=== PATIENT | male | born 1970 | race African-American/Black ===

== ENCOUNTER 2017-08-18 19:12 | Emergency (ER) | payer BC, OTHER ==
[~2017-08-18] VITALS: Ht 170.2 cm; Wt 90.7 kg
--- NOTE | ~2017-08-18 | EKG ---
[place] [address] [facility] [place] [address] ELECTROCARDIOGRAM REPORT Name: ROVERTO HALEYN Sina Room #: [facility]ENTERJy[facility] [id number] Admission: 08/18/17 Attend Phys: Discharge: 08/18/17 Date of : 74 Report #: [id number] THIS REPORT FOR: //name// [facility] ED Test Date: 2017-08-18 Test Time: 20:41:16 Pat Name: ANA HALEY Department: Room: Gender: Home Health Assistant: Sánchez ANGEL : 1970 Requested By: aMrisa Terrell Order Number: [id number] MD: Roderick Lane Measurements Intervals [place] Rate: 88 P: 60 OK: 163 QRS: -18 QRSD: 88 T: 31 QT: 357 QTc: 432 Interpretive Statements Sinus rhythm Borderline left axis deviation No previous ECG available for comparison Electronically Signed On 08-19-2017 15:43:[address] [email or web address] <ELECTRONICALLY SIGNED> By: Roderick Lane MD, [facility] 08/19/[address] MD, FACC /EPI
[2017-08-18 20:47] VITALS: BP 115/77
[2017-08-18] MEDS ORDERED: MOBIC7.5 MG PO (21:21)
== END 2017-08-18 21:47 | disposition home or self-care (01) ==
LOC: ER 19:12
DX: M25.512 Pain in left shoulder (principal)

== ENCOUNTER 2018-05-31 21:42 | Emergency (ER) | payer BC, OTHER ==
[~2018-05-31] VITALS: Ht 172.7 cm; Wt 86.6 kg
[~2018-05-31 21:42] MED LIST: MOBIC7.5 MG PO
[2018-05-31 23:27] LABS: URINE BILIRUBIN NEGATIVE (Negative); URINE BLOOD NEGATIVE (Negative); URINE CLARITY CLEAR; URINE COLOR YELLOW; URINE GLUCOSE-RANDOM* NEGATIVE (Negative); URINE KETONES TRACE (Negative); URINE LEUKOCYTES-REFLEX NEGATIVE (Negative); URINE NITRITE-REFLEX NEGATIVE (Negative); URINE PROTEIN (DIPSTICK) NEGATIVE (Negative); URINE SPECIFIC GRAVITY >= 1.030 (1.005-1.035); URINE UROBILINOGEN 0.2 E.U./dl (0.2-1.0)
[2018-05-31 23:31] LABS: BASOPHILS 0.6 % (0.0-2.0); EOSINOPHILS 0.8 % (0.0-3.0); HEMOGLOBIN 13.8 gm/dL (14.0-18.0); LYMPHOCYTES 42.1 % (24.0-44.0); MCH 23.6 pg (26.0-34.0); MCHC 32.1 g/dL (28.0-37.0); MCV 73.5 fL (80.0-100.0); MONOCYTES 6.3 % (1.0-8.0); PLATELET COUNT 245 thou/uL (150-400); POLYS 50.2 % (36.0-66.0); RBC 5.85 mil/uL (4.50-6.00); RDW 15.6 % (10.5-14.5); WBC 6.1 thou/uL (4.0-11.0)
[2018-05-31 23:35] LABS: CALCIUM 8.8 mg/dL (8.5-10.1); POTASSIUM 3.5 mmol/L (3.5-5.1)
[2018-05-31 23:41] LABS: ALBUMIN 3.7 g/dL (3.4-5.0); TOTAL BILIRUBIN 0.3 mg/dL (<0.1-1.0)
[2018-06-01] MEDS ORDERED: IBUPROFEN 600600 M1 PO (01:39)
[2018-06-01] MEDS ORDERED: HYDROCORTISONE30 G9 RECTAL (01:39)
[2018-06-01] MEDS ORDERED: TRAMADOL 50 MG50 MG PO (01:39)
[2018-06-01] MEDS ORDERED: MIRALAX17 GM PO (01:39)
[2018-06-01 02:12] VITALS: BP 104/65
== END 2018-06-01 02:12 | disposition home or self-care (01) ==
LOC: ER 21:42
PROVIDERS: Emergency Medicine
DX: K64.5 Perianal venous thrombosis (principal); R11.2 Nausea with vomiting, unspecified

== ENCOUNTER 2020-12-11 19:24 | Emergency (ER) | payer BC, OTHER ==
[~2020-12-11] VITALS: Ht 170.2 cm; Wt 83.9 kg
[~2020-12-11 19:24] MED LIST changes: +HYDROCORTISONE30 G9 RECTAL; +IBUPROFEN 600600 M1 PO; +MIRALAX17 GM PO; +TRAMADOL 50 MG50 MG PO
[2020-12-11] MEDS ORDERED: NOHOMEMEDICATIONS (19:37)
[2020-12-11] MEDS ORDERED: ZANAFLEX4 MG PO (20:24)
[2020-12-11] MEDS ORDERED: MEDROLDOSEPACK PO (20:24)
[2020-12-11] MEDS ORDERED: MOBIC7.5 MG PO (20:24)
== END 2020-12-11 20:58 | disposition home or self-care (01) ==
LOC: ER 19:24
DX: S39.012A Strain of muscle, fascia and tendon of lower back, initial encounter (principal); F12.90 Cannabis use, unspecified, uncomplicated; X50.1XXA Overexertion from prolonged static or awkward postures, initial encounter; Y93.89 Activity, other specified; Y92.89 Other specified places as the place of occurrence of the external cause; Y99.8 Other external cause status

== ENCOUNTER 2020-12-19 19:02 | Emergency (ER) | payer BC, OTHER ==
[~2020-12-19] VITALS: Ht 170.2 cm; Wt 79.4 kg
[~2020-12-19 19:02] MED LIST changes: +MEDROLDOSEPACK PO; +NOHOMEMEDICATIONS; +ZANAFLEX4 MG PO
[2020-12-19 21:08] LABS: ABSOLUTE NEUTROPHILS 4.3 thou/uL (1.4-8.2); BASOPHILS 0.6 % (0.0-2.0); EOSINOPHILS 2.1 % (0.0-3.0); HEMATOCRIT 39.7 % (42.0-52.0); HEMOGLOBIN 12.6 gm/dL (14.0-18.0); LYMPHOCYTES 20.6 % (24.0-44.0); MCH 23.1 pg (26.0-34.0); MCHC 31.8 g/dL (28.0-37.0); MCV 72.6 fL (80.0-100.0); MONOCYTES 9.8 % (1.0-8.0); PLATELET COUNT 287 thou/uL (150-400); POLYS 66.9 % (36.0-66.0); RBC 5.47 mil/uL (4.50-6.00); RDW 15.1 % (10.5-14.5); WBC 6.4 thou/uL (4.0-11.0)
[2020-12-19 21:26] LABS: CALCIUM 9.2 mg/dL (8.5-10.1); CREATININE 1.2 mg/dL (0.7-1.3)
[2020-12-19] MEDS ORDERED: DOXYCYCLINE 10100 MG PO (21:56)
[2020-12-19] MEDS ORDERED: TRAMADOL 50 MG50 MG PO (21:56)
[2020-12-19 23:03] VITALS: BP 115/62
== END 2020-12-19 23:04 | disposition home or self-care (01) ==
LOC: ER 19:02
PROVIDERS: Emergency Medicine
DX: N45.4 Abscess of epididymis or testis (principal); L02.412 Cutaneous abscess of left axilla; F15.10 Other stimulant abuse, uncomplicated; F12.90 Cannabis use, unspecified, uncomplicated; F14.90 Cocaine use, unspecified, uncomplicated